=== PATIENT | female | born 1950 | race Caucasian/White ===

== ENCOUNTER 2018-04-07 11:53 | Inpatient (IN) | payer OTHER, MEDICARE ==
[~2018-04-07] VITALS: Ht 167.6 cm; Wt 86.2 kg
[2018-04-07] VITALS (7 sets, daily range): BP systolic 129–157; BP diastolic 72–86
--- NOTE | ~2018-04-07 | 2DMMODE ---
[facility] [address] [email or web address] [address] 2 D/M-MODE ECHOCARDIOGRAM Name: JULIANA HAIDER Room #: 424-P [facility] IN ..#: [id number] Admission: 04/07/18 Attend Phys: Chapincito Marin MD Discharge: Date of : 48 Date of Service: 04/08/18 1216 Report #: [id number] THIS REPORT FOR: //name// APPROVED REPORT Study performed: 04/08/2018 10:35:22 EXAM: Comprehensive 2D, Doppler, and color-flow Echocardiogram Patient Location: Bedside Room #: 424 Status: on-call BSA: 1.94 HR: 63 bpm BP: 129/62 mmHg Other Information Study Quality: Fair Indications Syncope 2D Dimensions RVDd: 31.35 mm LVEF(%): 57.64 (>50%) IVSd: 7.97 (7-11mm) LVOT Diam: 20.49 (18-24mm) LVDd: 48.05 mm PWd: 8.14 (7-11mm) Ascending Ao: 25.89 (22-36mm) LVDs: 33.47 (25-40mm) Aortic Root: 22.66 mm IVC: 18.00 mm Camacho's LVEF: 57.64 % Volumes Left Atrial Volume (Systole) Single Plane 4CH: 30.76 mL Single Plane 2CH: 31.88 mL LA ESV Index: 18.00 mL/m2 Aortic Valve AoV Peak Tal.: 1.14 m/s AO Peak Gr.: 5.23 mmHg LVOT Max P.67 mmHg LVOT Max V: 0.96 m/s MAUDE Vmax: 2.76 cm2 Mitral Valve E/A Ratio: 0.9 MV Decel. Time: 174.40 ms MV E Max Tal.: 0.80 m/s [facility] [place] [address] [address] 2 D/M-MODE ECHOCARDIOGRAM Name: JULIANA HAIDER Room #: 424-P [facility] IN .R.#: [id number] Admission: 04/07/18 Attend Phys: Chapincito Marin MD Discharge: Date of : 48 Date of Service: 04/08/18 1216 Report #: [id number] MV A Tal.: 0.94 m/s MV PHT: 50.58 ms IVRT: 138.41 ms Pulmonary Valve PV Peak Tal.: 0.70 m/s PV Peak Gr.: 2.00 mmHg Pulmonary Vein P Vein S: 0.61 m/s P Vein A: 0.37 m/s P Vein D: 0.34 m/s P Vein A Dur.: 138.4 msec P Vein S/D Ratio: 1.79 Tricuspid Valve TR Peak Tal.: 2.18 m/s TR Peak Gr.: 19.02 mmHg PA Pressure: 24.00 mmHg Left Ventricle The left ventricle is normal size. There is normal LV segmental wall motion. There is normal left ventricular wall thickness. The left ventricular systolic function is normal. The left ventricular ejection fraction is within the normal range. LVEF is 55-60%. Grade I - abnormal relaxation pattern. Right Ventricle The right ventricle is normal size. The right ventricular systolic function is normal. Atria The left atrium size is normal. The right atrium size is normal. Aortic Valve The aortic valve is normal in structure. No aortic regurgitation is present. There is no aortic valvular stenosis. Mitral Valve The mitral valve is normal in structure. Trace mitral regurgitation. No evidence of mitral valve stenosis. Tricuspid Valve The tricuspid valve is normal in structure. There is trace tricuspid regurgitation. Estimated PAP24 mmHg. There is no pulmonary hypertension. Pulmonic Valve [facility] [address] [address] 2 D/M-MODE ECHOCARDIOGRAM Name: JULIANA HAIDER Room #: 424-P [facility] IN [facility]#: [id number] Admission: 04/07/18 Attend Phys: Chapincito Marin MD Discharge: Date of : 48 Date of Service: 04/08/18 1216 Report #: [id number] The pulmonary valve is normal in structure. Trace pulmonic regurgitation. Great Vessels The aortic root is normal in size. IVC is normal in size and collapses >50% with inspiration. Pericardium There is no pericardial effusion. <Conclusion> The left ventricle is normal size. LVEF is 55-60%. The aortic valve is normal in structure. The mitral valve is normal in structure. Trace mitral regurgitation. The tricuspid valve is normal in structure. There is trace tricuspid regurgitation. Estimated PAP24 mmHg. There is no pulmonary hypertension. The pulmonary valve is normal in structure. Trace pulmonic regurgitation. There is no pericardial effusion. <ELECTRONICALLY SIGNED> By: Reagan Montejo MD 04/08/18 1216 15 15 Reagan Montejo MD /INF
--- NOTE | ~2018-04-07 | EKG ---
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
[2018-04-07] MEDS ORDERED: ZOCOR20 MG PO (12:48)
[2018-04-07] MEDS ORDERED: OXYBUTYNIN 5 MG5 M2 PO (12:49)
[2018-04-07] MEDS ORDERED: DITROPAN XL10 M1 PO (12:49)
[2018-04-07] MEDS ORDERED: BAYER CHEWABLE81 MG PO (12:50)
[2018-04-07] MEDS ORDERED: VITAMIN C1000 MG PO (12:50)
[2018-04-07] MEDS ORDERED: VITAMIN D3400 UNIT PO (12:50)
[2018-04-07] MEDS ORDERED: CALCIUM 500 +1 EAC5 PO (12:51)
[2018-04-07] MEDS ORDERED: UNICOMPLEX M TA1 TA1 PO (12:51)
[2018-04-07] MEDS ORDERED: GLUCOSAMINE HC500 MG PO (12:51)
[2018-04-07 13:19] LABS: ABSOLUTE NEUTROPHILS 7.3 thou/uL (1.4-8.2); BASOPHILS 0.9 % (0.0-2.0); EOSINOPHILS 1.4 % (0.0-3.0); HEMATOCRIT 43.7 % (37.0-47.0); HEMOGLOBIN 14.9 gm/dL (12.0-15.0); LYMPHOCYTES 16.9 % (24.0-44.0); MCH 31.2 pg (26.0-34.0); MCV 91.7 fL (80.0-100.0); MONOCYTES 6.3 % (1.0-8.0); POLYS 74.5 % (36.0-66.0); RBC 4.77 mil/uL (4.20-5.00); RDW 13.8 % (10.5-14.5); WBC 9.8 thou/uL (4.0-11.0)
[2018-04-07 13:29] LABS: ANION GAP 10 mmol/L (7-16); BUN 17 mg/dL (7-18); CHLORIDE 103 mmol/L (98-107); CO2 24 mmol/L (21-32); CREATININE 0.8 mg/dL (0.6-1.0); GLUCOSE 112 mg/dL (74-106); SODIUM 137 mmol/L (136-145)
[2018-04-07 13:37] LABS: ALBUMIN 4.3 g/dL (3.4-5.0); SGOT 30 U/L (15-37); SGPT 31 U/L (30-65); TOTAL BILIRUBIN 0.4 mg/dL (<0.1-1.0); TROPONIN-I < 0.04 ng/mL (<0.06)
[2018-04-07 13:48] LABS: PLATELET COUNT 210 thou/uL (150-400)
[2018-04-07 15:02] LABS: URINE BILIRUBIN NEGATIVE (Negative); URINE BLOOD NEGATIVE (Negative); URINE CLARITY CLEAR; URINE COLOR YELLOW; URINE GLUCOSE-RANDOM* NEGATIVE (Negative); URINE KETONES NEGATIVE (Negative); URINE LEUKOCYTES-REFLEX NEGATIVE (Negative); URINE PROTEIN (DIPSTICK) NEGATIVE (Negative); URINE SPECIFIC GRAVITY <= 1.005 (1.005-1.035); URINE UROBILINOGEN 0.2 E.U./dl (0.2-1.0)
[2018-04-07 15:05] LABS: URINE NITRITE-REFLEX POSITIVE (Negative)
[2018-04-07 15:13] LABS: CASTS None Seen /LPF (None Seen); SQUAMOUS 0-3 Few /LPF (0-3)
[2018-04-07 15:14] LABS: URINE WBC-REFLEX 0-5 Rare /HPF (0-5)
[2018-04-07 15:15] LABS: BACTERIA-REFLEX >30 Many /HPF (None Seen); URINE RBC 0-2 Rare /HPF (0-2)
[2018-04-07 15:16] LABS: CRYSTALS None Seen /LPF (None Seen)
[2018-04-08 03:14] VITALS: BP 129/62
[2018-04-08 08:00] VITALS: BP 113/62; BP 118/73; BP 130/70
[2018-04-08 15:35] VITALS: BP 130/70
== END 2018-04-08 15:48 | disposition home or self-care (01) | DRG 312 ==
LOC: ER 11:53 → EROBS 14:25 → 4N 16:05 → 4E 16:10
PROVIDERS: Nurse Practitioner Family
DX: I95.1 Orthostatic hypotension (principal); N39.0 Urinary tract infection, site not specified; E78.00 Pure hypercholesterolemia, unspecified; S05.11XA Contusion of eyeball and orbital tissues, right eye, initial encounter; S02.5XXA Fracture of tooth (traumatic), initial encounter for closed fracture; J32.0 Chronic maxillary sinusitis; E86.0 Dehydration; I45.10 Unspecified right bundle-branch block; W18.09XA Striking against other object with subsequent fall, initial encounter; Y93.89 Activity, other specified; Y92.89 Other specified places as the place of occurrence of the external cause; Y99.8 Other external cause status; Z79.82 Long term (current) use of aspirin; Z79.899 Other long term (current) drug therapy; Z88.1 Allergy status to other antibiotic agents; Z82.49 Family history of ischemic heart disease and other diseases of the circulatory system
CPT/HCPCS: 10183

== ENCOUNTER → 2020-04-29 | Outpatient (CLI) | payer OTHER, MEDICARE ==
[~2020-04-29] MED LIST: BAYER CHEWABLE81 MG PO; CALCIUM 500 +1 EAC5 PO; DITROPAN XL10 M1 PO; GLUCOSAMINE HC500 MG PO; OXYBUTYNIN 5 MG5 M2 PO; UNICOMPLEX M TA1 TA1 PO; VITAMIN C1000 MG PO; VITAMIN D3400 UNIT PO; ZOCOR20 MG PO
== END ==
LOC: SJCVC 09:17
PROVIDERS: ATTEND Internal Medicine
DX: R94.31 Abnormal electrocardiogram [ECG] [EKG] (principal); I45.10 Unspecified right bundle-branch block; E78.5 Hyperlipidemia, unspecified; Z79.899 Other long term (current) drug therapy